=== PATIENT | female | born 1935 | race Caucasian/White ===

== ENCOUNTER → 2016-05-28 | Outpatient (CLI) | payer MEDICARE ==
[2016-05-28 08:46] LABS: Basophils # (A) 0.1 k/uL (0-0.2); Basophils % (A) 1 %; CH 30.7; Eosinophils # (A) 0.2 k/uL (0-0.7); Eosinophils % (A) 3 %; HCT 42.1 % (34.0-46.0); HDW 2.49; HGB 13.9 gm/dL (11.4-16.0); Luc # (Auto) 0.15; Luc % (Auto) 3; Lymphocytes # (A) 1.2 k/uL (1.0-4.8); Lymphocytes % (A) 21 %; MCH 30.9 pg (25.0-35.0); MCV 93.4 fL (80.0-100.0); Mean Platelet Volume 8.2; Monocytes # (A) 0.3 k/uL (0-1.0); Monocytes % (A) 6 %; Neutrophils # (A) 3.8 k/uL (1.3-7.7); Neutrophils % (A) 67 %; RBC 4.51 m/uL (3.80-5.40); RDW 13.7 % (11.5-15.5); WBC 5.7 k/uL (3.8-10.6); WBC (Perox) 5.15
[2016-05-28 09:09] LABS: ALT 24 U/L (9-52); AST 18 U/L (14-36); Anion Gap 11 mmol/L; Blood Urea Nitrogen 17 mg/dL (7-17); Calcium 9.2 mg/dL (8.4-10.2); Carbon Dioxide 27 mmol/L (22-30); Chloride 105 mmol/L (98-107); Cholesterol 180 mg/dL (<200); Glucose 92 mg/dL (74-99); HDL Cholesterol 57 mg/dL (40-60); Non-African American GFR(MDRD) >60 (>60 ml/min/1.73 sqM); Potassium 4.1 mmol/L (3.5-5.1); Sodium 143 mmol/L (137-145); Triglycerides 145 mg/dL (<150)
== END | disposition home or self-care (01) ==
LOC: LABWHC1 08:10
PROVIDERS: ATTEND Internal Medicine
DX: E78.2 Mixed hyperlipidemia (principal); R53.83 Other fatigue; E87.8 Other disorders of electrolyte and fluid balance, not elsewhere classified
CPT/HCPCS: 36415; 80048; 80061; 84443; 84450; 84460; 85025

== ENCOUNTER → 2016-12-16 | Outpatient (CLI) | payer MEDICARE ==
[2016-12-16 14:08] LABS: Blood Urea Nitrogen 17 mg/dL (7-17); Non-African American GFR(MDRD) >60 (>60 ml/min/1.73 sqM)
--- NOTE | 2016-12-16 14:56 | CT ---
EXAMINATION TYPE: CT abdomen pelvis w con DATE OF EXAM: 12/16/2016 HISTORY: LLQ pain, change in bowel habits CT DLP: 723.3mGycm Automated Exposure Control for Dose Reduction was Utilized. CONTRAST: CT scan of the abdomen and pelvis is performed with IV Contrast, patient injected with 100 mL of Omni paque 300. COMPARISON: CT abdomen pelvis October 24, 2006 FINDINGS: LUNG BASES: There is bibasilar atelectatic change and/or scarring. Cardiomegaly is present. Subcentim eter Calcified left infrahilar are noted. LIVER/GB: A few calcifications scattered throughout the liver are redemonstrated. Cholecystectomy cli ps are redemonstrated. PANCREAS: No significant abnormality is seen. SPLEEN: A few calcifications scattered throughout the spleen are redemonstrated. The liver, left infr ahilar, and splenic findings are consistent with product of old granulomatous disease. ADRENALS: No significant abnormality is seen. KIDNEYS: There is symmetric cortical medullary uptake and excretion from both kidneys. There is promi nence of bilateral renal pelvises without significant calyceal dilatation. There are few subcentimete r lesions scattered throughout both kidneys too small to further characterize but presumed benign. BOWEL: The oral contrast does not reach colonic level. There is no suspicious small or large bowel di latation. There is 1.4 cm diverticulum along the second portion of duodenum. Sigmoid colonic divertic ulosis is present. No convincing evidence for acute diverticulitis. Normal-appearing appendix is seen from cecum. UTERUS/ADNEXA: Uterus is surgically absent or markedly atrophic in appearance. LYMPH NODES: No greater than 1cm abdominal or pelvic lymph nodes are appreciated. OSSEOUS STRUCTURES: Osseous structures are demineralized. There is moderate joint space loss and spur ring in both hip joints. There is hemangioma in the left L1 and T12 vertebra. There is marked disc sp bertha narrowing lumbosacral junction. There is facet arthropathy lower lumbar levels. OTHER: There is mild to moderate calcified atherosclerotic change of aorta extending to pelvic branch vessels. There is new [place] hernia left lower quadrant on axial image 59. There is prominence of small mes enteric vessel some mild fat stranding at this level. IMPRESSION: There is new [place] lateral left (Martin type) ventral wall hernia at level of upper to mid pelvis, mild fat stranding at this level raises concern for infection or ischemic change of th e fat and small mesenteric vessel protruding at this level and may be accounting for patient's sympto ms.
== END | disposition home or self-care (01) ==
LOC: RADCTMAIN 13:26
PROVIDERS: ATTEND Internal Medicine
DX: K43.9 Ventral hernia without obstruction or gangrene (principal)
CPT/HCPCS: 82565; 84520; 74177; 36415; Q9967

== ENCOUNTER → 2017-08-03 | Outpatient (CLI) | payer MEDICARE ==
--- NOTE | 2017-08-04 15:06 | XR ---
EXAMINATION TYPE: XR lumbosacral spine min 4V DATE OF EXAM: 08/03/2017 CLINICAL HISTORY: Back pain TECHNIQUE: Frontal, lateral, and oblique images of the lumbar spine are obtained. COMPARISON: None FINDINGS: There are 5 lumbar type vertebral bodies identified. The lumbar spine shows satisfactory alignment. There is a questionable compression deformity of the L3 vertebral body with minimal verteb ral body height loss (estimated less than 10%). This is suboptimally visualized due to osseous demine ralization. Moderate multilevel degenerative changes of the lumbar spine are noted. Remaining vertebral body heig hts are within normal limits. There is at least moderate neural foraminal narrowing at L2-L3 on the l eft and L4-L5 with at least mild neural foraminal narrowing at L3-L4 on the left. On the right neurof oraminal narrowing appears to be at least mild L2-L3. The overlying soft tissue appears unremarkable . Post cystectomy clips are incidentally noted. Multiple right-sided probable renal calculi are seen measuring up to 8 mm (approximately 9 number). IMPRESSION: 1. Subtle questionable compression deformity of the L3 vertebral body without retropulsion with minim al vertebral body height loss (estimated less than 10%) this is suboptimally visualized due to osseou s demineralization. Correlate with focal point tenderness. MR could be performed to evaluate for bone marrow edema. 2. Multilevel moderate degenerative disc disease resulting in neural foraminal narrowing as described above. 3. Right-sided nephrolithiasis measuring up to 8 mm (approximately 9 in number).
== END ==
LOC: RADXRMAIN 16:34
PROVIDERS: ATTEND Internal Medicine
DX: M99.73 Connective tissue and disc stenosis of intervertebral foramina of lumbar region (principal); M51.36 Other intervertebral disc degeneration, lumbar region; M85.80 Other specified disorders of bone density and structure, unspecified site
CPT/HCPCS: 72110

== ENCOUNTER → 2017-08-07 | Outpatient (CLI) | payer MEDICARE ==
--- NOTE | 2017-08-07 16:09 | NM ---
EXAMINATION TYPE: NM bone scan whole body DATE OF EXAM: 08/07/2017 COMPARISON: 10/24/2015 HISTORY: Low back pain Delayed whole-body scanning was performed following the injection of 21.6 mCi Tc 99m MDP. Images acq uired 3 hours post injection. FINDINGS: Focal radiotracer uptake is seen within the L2 vertebral body. Retrospectively on the examination of 07/24/2017 this does correspond to the radiographic findings, however counting was off on the lateral i mage. There is diffuse osseous demineralization noted. Bilateral knee arthroplasties are seen. Poolin g within the left renal pelvis is identified. Symmetric uptake within the sternoclavicular joints, sh oulders, wrists, and sacroiliac joints are likely on a degenerative basis. IMPRESSION: Focal radiotracer uptake within the L2 vertebral body indicating acute compression fracture within co rrelated with the radiographs of 08/03/2017.
== END | disposition home or self-care (01) ==
LOC: RADNMMAIN 11:35
PROVIDERS: ATTEND Physical Medicine & Rehabilitation
DX: S32.029A Unspecified fracture of second lumbar vertebra, initial encounter for closed fracture (principal)
CPT/HCPCS: 78306; A9503

== ENCOUNTER → 2018-09-21 | Outpatient (CLI) | payer MEDICARE ==
--- NOTE | 2018-09-21 14:56 | XR ---
EXAMINATION TYPE: XR chest 2V DATE OF EXAM: 09/21/2018 COMPARISON: 12/17/2015 TECHNIQUE: PA and lateral views submitted. HISTORY: Shortness of breath FINDINGS: Subsegmental consolidation bilaterally with small left effusion. Surgical clips overlying soft tissue s of the chest wall bilaterally. Hypertrophic and degenerative change of the spine. Hyperinflation king ggests COPD. Diffuse osteopenia. Previous trauma the right clavicle noted. IMPRESSION: 1. Basilar atelectasis favored over pneumonia. Tiny pleural thickening or pleural effusion.
== END | disposition home or self-care (01) ==
LOC: RADXRMAIN 14:23
PROVIDERS: ATTEND Internal Medicine
DX: R07.81 Pleurodynia (principal)
CPT/HCPCS: 71046

== ENCOUNTER 2020-03-20 17:04 | Inpatient (IN) | payer MEDICARE ==
[2020-03-20] MEDS ORDERED: SODIUM CHLORIDE 0.9% 500 ML 500 ML IV STA (17:54)
[2020-03-20 18:11] LABS: Basophils # (A) 0.1 k/uL (0-0.2); Basophils % (A) 1 %; Eosinophils # (A) 0.2 k/uL (0-0.7); Eosinophils % (A) 4 %; HGB 13.2 gm/dL (11.4-16.0); Lymphocytes % (A) 20 %; MCH 32.6 pg (25.0-35.0); MCHC 33.9 g/dL (31.0-37.0); MCV 96.2 fL (80.0-100.0); Mean Platelet Volume 7.6; Monocytes # (A) 0.4 k/uL (0-1.0); Monocytes % (A) 8 %; Neutrophils # (A) 3.4 k/uL (1.3-7.7); Neutrophils % (A) 64 %; Platelet Count 277 k/uL (150-450); RBC 4.05 m/uL (3.80-5.40); RDW 13.4 % (11.5-15.5); WBC 5.3 k/uL (3.8-10.6)
[2020-03-20 18:20] LABS: ALT 9 U/L (4-34); AST 21 U/L (14-36); African American GFR (CKD) >90 (>60 ml/min/1.73 sqM); Albumin 3.7 g/dL (3.5-5.0); Alkaline Phosphatase 80 U/L (38-126); Anion Gap 5 mmol/L; Blood Urea Nitrogen 12 mg/dL (7-17); Calcium 9.4 mg/dL (8.4-10.2); Carbon Dioxide 26 mmol/L (22-30); Chloride 105 mmol/L (98-107); Glucose 93 mg/dL (74-99); Lipase 57 U/L (23-300); Non-African American GFR(CKD) 84 (>60 ml/min/1.73 sqM); Potassium 4.2 mmol/L (3.5-5.1); Sodium 136 mmol/L (137-145); Total Bilirubin 0.6 mg/dL (0.2-1.3); Total Protein 6.9 g/dL (6.3-8.2)
--- NOTE | 2020-03-20 18:20 | ED ---
Abdominal Pain HPI - General Chief Complaint: Abdominal Pain Stated Complaint: back & abd pain Time Seen by Provider: 03/20/20 17:05 Source: patient Mode of arrival: wheelchair Limitations: physical limitation - History of Present Illness Initial Comments: 84 year old female with past history of breast cancer in remission, hypertension who presents to the emergency department with reported abdominal pain. Patient states she's had lower abdominal pain and back pain for the past 5 days. Also reports that she has not had a bowel movement. Patient normally goes daily. States that she has been taking stool softeners and laxatives without improvement. Patient reports abdominal distention. Has a history of previous bowel surgery. Denies history of bowel obstruction. Admits to nausea without vomiting. No fevers or chills. No chest pain or shortness of breath. No other alleviating, precipitating or modifying factors - Related Data Home Medications Medication Instructions Recorded Confirmed atenoloL [Tenormin] 25 mg PO QAM 01/30/14 03/20/20 Acetaminophen [Tylenol] 1,000 mg PO Q4-6H PRN 03/20/20 03/20/20 Triamcinolone 0.5% Cream [Kenalog 1 applic TOPICAL BID 03/20/20 03/20/20 0.5% Cream] Previous Rx's Medication Instructions Recorded polyethylene glycoL 3350 [Miralax] 17 gm PO DAILY 5 Days #30 powd.pack 03/22/20 Allergies Allergy/AdvReac Type Severity Reaction Status Date / Time No Known Allergies Allergy Verified 03/20/20 18:35 Review of Systems ROS Statement: Those systems with pertinent positive or pertinent negative responses have been documented in the HPI. ROS Other: All systems not noted in ROS Statement are negative. Past Medical History Past Medical History: Cancer, GI Bleed, Hypertension, Osteoarthritis (OA) Additional Past Medical History / Comment(s): HX RT BREAST CA-WITH RADIATION- 2006, BENIGN TUMOR COLON. HX BLEEDING ULCER-2007 History of Any Multi-Drug Resistant Organisms: None Reported Past Surgical History: Bladder Surgery, Bowel Resection, Breast Surgery, Cholecystectomy, Hernia Repair, Hysterectomy, Joint Replacement Additional Past Surgical History / Comment(s): SIGMOID RESECTION-1985,RT BREAST LUMPECTOMY-2006. BILAT TKA,CYSTOCELE, COLONOSCOPY,CATARACTS REMOVED BILAT, 1 0-11-16 TOTAL RT KNEE REPLACMENT Past Anesthesia/Blood Transfusion Reactions: No Reported Reaction Past Psychological History: No Psychological Hx Reported Smoking Status: Never smoker Past Alcohol Use History: None Reported Past Drug Use History: None Reported - Past Family History Mother Family Medical History: Cancer, Deep Vein Thrombosis (DVT) Son(s) Family Medical History: Cancer General Exam Limitations: physical limitation General appearance: alert, in no apparent distress Head exam: Present: atraumatic, normocephalic, normal inspection Eye exam: Present: normal appearance, PERRL, EOMI. Absent: scleral icterus, conjunctival injection, periorbital swelling ENT exam: Present: normal exam, mucous membranes moist Neck exam: Present: normal inspection. Absent: tenderness, meningismus, lymphadenopathy Respiratory exam: Present: normal lung sounds bilaterally. Absent: respiratory distress, wheezes, rales, rhonchi, stridor Cardiovascular Exam: Present: regular rate, normal rhythm, normal heart sounds. Absent: systolic murmur, diastolic murmur, rubs, gallop, clicks GI/Abdominal exam: Present: soft, tenderness (generalized), normal bowel sounds. Absent: distended, guarding, rebound, rigid Extremities exam: Present: normal inspection, full ROM, normal capillary refill. Absent: tenderness, pedal edema, joint swelling, calf tenderness Back exam: Present: normal inspection Neurological exam: Present: alert, oriented X3, CN II-XII intact Psychiatric exam: Present: normal affect, normal mood Skin exam: Present: warm, dry, intact, normal color. Absent: rash Course Vital Signs 03/20/20 03/20/20 17:06 19:44 Temperature 97.7 F Pulse Rate 70 62 Respiratory 18 18 Rate Blood Pressure 137/85 140/62 O2 Sat by Pulse 100 93 L Oximetry Medical Decision Making - Medical Decision Making On arrival patient is placed in room 4. A thorough history and physical exam was performed. Peripheral IV is established and laboratory studies were conducted. Laboratory studies are reviewed. Patient is sent for a CT of her abdomen and pelvis was demonstrates mild fluid-filled small bowel loops within the pelvis suggestive ileus. Results are discussed with the patient. Did recommend hospitalization for bowel rest, pain control and GI consult. Patient did agree to this. Discussed case with Dr. Delgadillo who agreed to admit the patient. Patient remained in stable condition awaiting a bed. - Lab Data Result diagrams: 03/21/20 05:23 03/21/20 05:23 Lab Results 03/20/20 03/20/20 03/20/20 Range/Units 17:58 17:58 17:58 WBC 5.3 (3.8-10.6) k/uL RBC 4.05 (3.80-5.40) m/uL Hgb 13.2 (11.4-16.0) gm/dL Hct 39.0 (34.0-46.0) % MCV 96.2 (80.0-100.0) fL MCH 32.6 (25.0-35.0) pg MCHC 33.9 (31.0-37.0) g/dL RDW 13.4 (11.5-15.5) % Plt Count 277 (150-450) k/uL MPV 7.6 Neutrophils % 64 % Lymphocytes % 20 % Monocytes % 8 % Eosinophils % 4 % Basophils % 1 % Neutrophils # 3.4 (1.3-7.7) k/uL Lymphocytes # 1.0 (1.0-4.8) k/uL Monocytes # 0.4 (0-1.0) k/uL Eosinophils # 0.2 (0-0.7) k/uL Basophils # 0.1 (0-0.2) k/uL PT 10.8 (9.0-12.0) sec INR 1.1 (<1.2) APTT 25.6 (22.0-30.0) sec Sodium 136 L (137-145) mmol/L Potassium 4.2 (3.5-5.1) mmol/L Chloride 105 (98-107) mmol/L Carbon Dioxide 26 (22-30) mmol/L Anion Gap 5 mmol/L BUN 12 (7-17) mg/dL Creatinine 0.57 (0.52-1.04) mg/dL Est GFR (CKD-EPI)AfAm >90 (>60 ml/min/1.73 sqM) Est GFR (CKD-EPI)NonAf 84 (>60 ml/min/1.73 sqM) Glucose 93 (74-99) mg/dL Plasma Lactic Acid Ken (0.7-2.0) mmol/L Calcium 9.4 (8.4-10.2) mg/dL Total Bilirubin 0.6 (0.2-1.3) mg/dL AST 21 (14-36) U/L ALT 9 (4-34) U/L Alkaline Phosphatase 80 (38-126) U/L Total Protein 6.9 (6.3-8.2) g/dL Albumin 3.7 (3.5-5.0) g/dL Lipase 57 (23-300) U/L Urine Color Urine Appearance (Clear) Urine pH (5.0-8.0) Ur Specific [place] (1.001-1.035) Urine Protein (Negative) Urine Glucose (UA) (Negative) Urine Ketones (Negative) Urine Blood (Negative) Urine Nitrite (Negative) Urine Bilirubin (Negative) Urine Urobilinogen (<2.0) mg/dL Ur Leukocyte Esterase (Negative) Urine RBC (0-5) /hpf Urine WBC (0-5) /hpf Ur Squamous Epith Cells (0-4) /hpf 03/20/20 03/20/20 Range/Units 17:58 19:34 WBC (3.8-10.6) k/uL RBC (3.80-5.40) m/uL Hgb (11.4-16.0) gm/dL Hct (34.0-46.0) % MCV (80.0-100.0) fL MCH (25.0-35.0) pg MCHC (31.0-37.0) g/dL RDW (11.5-15.5) % Plt Count (150-450) k/uL MPV Neutrophils % % Lymphocytes % % Monocytes % % Eosinophils % % Basophils % % Neutrophils # (1.3-7.7) k/uL Lymphocytes # (1.0-4.8) k/uL Monocytes # (0-1.0) k/uL Eosinophils # (0-0.7) k/uL Basophils # (0-0.2) k/uL PT (9.0-12.0) sec INR (<1.2) APTT (22.0-30.0) sec Sodium (137-145) mmol/L Potassium (3.5-5.1) mmol/L Chloride (98-107) mmol/L Carbon Dioxide (22-30) mmol/L Anion Gap mmol/L BUN (7-17) mg/dL Creatinine (0.52-1.04) mg/dL Est GFR (CKD-EPI)AfAm (>60 ml/min/1.73 sqM) Est GFR (CKD-EPI)NonAf (>60 ml/min/1.73 sqM) Glucose (74-99) mg/dL Plasma Lactic Acid Ken 0.8 (0.7-2.0) mmol/L Calcium (8.4-10.2) mg/dL Total Bilirubin (0.2-1.3) mg/dL AST (14-36) U/L ALT (4-34) U/L Alkaline Phosphatase (38-126) U/L Total Protein (6.3-8.2) g/dL Albumin (3.5-5.0) g/dL Lipase (23-300) U/L Urine Color Yellow Urine Appearance Clear (Clear) Urine pH 5.5 (5.0-8.0) Ur Specific [place] 1.050 H (1.001-1.035) Urine Protein Negative (Negative) Urine Glucose (UA) Negative (Negative) Urine Ketones Trace H (Negative) Urine Blood Trace H (Negative) Urine Nitrite Negative (Negative) Urine Bilirubin Negative (Negative) Urine Urobilinogen <2.0 (<2.0) mg/dL Ur Leukocyte Esterase Trace H (Negative) Urine RBC 2 (0-5) /hpf Urine WBC 6 H (0-5) /hpf Ur Squamous Epith Cells 2 (0-4) /hpf - EKG Data EKG Comments: EKG done which is normal sinus rhythm with a ventricular rate of 62. [place] interval 174. QRS 86. QTC of 424. No acute ST segment elevation or depressions concerning for ischemic changes Disposition Clinical Impression: Ileus, Abdominal pain Disposition: ADMITTED IP TO THIS HOSP Condition: Stable Is patient prescribed a controlled substance at d/c from ED?: No Decision to Admit Reason: Admit from EC Decision Date: 03/20/20 Decision Time: 19:51
[2020-03-20 18:22] LABS: INR 1.1 (<1.2); Partial Thromboplastin Time 25.6 sec (22.0-30.0); Prothrombin Time 10.8 sec (9.0-12.0)
--- NOTE | 2020-03-20 19:05 | CT ---
EXAMINATION TYPE: CT abdomen pelvis w con DATE OF EXAM: 03/20/2020 COMPARISON: 12/16/2016 INDICATION: Abdominal and back pain. DLP: 816.8 mGycm, Automated exposure control for dose reduction was used. CONTRAST: 100ml mL of Isovue 300. Study performed without Oral Contrast TECHNIQUE: Axial images were obtained from above the diaphragm to the pubic rami in the axial plane a t 5 mm thick sections. Reconstructed images are reviewed on the computer in the coronal plane. FINDINGS: Limited CT sections are obtained the lung bases. The lung bases are clear. CT ABDOMEN: Liver: Normal Spleen: Normal Pancreas: Normal Adrenal glands: The adrenal glands are normal. Gallbladder: Surgically absent Kidneys: No masses are evident. No hydronephrosis is present. No cysts are present. Delayed images were obtained through the kidneys, which remain unremarkable. Aorta: Vascular calcification is within the aorta. Inferior vena cava: Normal. CT PELVIS: Small bowel loops within the pelvis are fluid-filled. Left hemipelvis small bowel loops are slightly prominent. Correlate for ileus. Study is performed without oral contrast limiting bowel evaluation. Appendix: Normal as visualized. Urinary bladder: Decompressed with limited evaluation Genitourinary structures: Uterus and ovaries are not identified. Osseous structures: No suspicious lytic or sclerotic lesions. IMPRESSIONS: 1. Mild fluid-filled small bowel loops within the pelvis suggestive for ileus within the pelvis.
[2020-03-20 19:49] LABS: Appearance,Urine Clear (Clear); Bilirubin,Urine Negative (Negative); Blood,Urine Trace (Negative); Color,Urine Yellow; Glucose,Urine (UA) Negative (Negative); Ketones,Urine Trace (Negative); Leukocyte Esterase,Urine Trace (Negative); Nitrite,Urine Negative (Negative); PH, Urine 5.5 (5.0-8.0); Protein,Urine Negative (Negative); RBC,Urine 2 /hpf (0-5); Squamous Epithelial Cell,Urine 2 /hpf (0-4); Urobilinogen,Urine <2.0 mg/dL (<2.0); WBC,Urine 6 /hpf (0-5)
[2020-03-20] MEDS ORDERED: ONDANSETRON 4 MG/2 ML VIAL IVP PRN (19:57)
[2020-03-20] MEDS ORDERED: NALOXONE 0.4 MG/ML 1 ML VIAL IV PRN (19:57)
[2020-03-20] MEDS: SODIUM CHLORIDE 0.9% 1,000 ML IV SCH (20:29)
[2020-03-20] MEDS: MORPHINE SULFATE 4 MG/ML SYRINGE IV PRN (22:40)
[2020-03-21] MEDS ORDERED: bisacodyL 10 MG SUPP RECTAL STA
--- NOTE | 2020-03-21 00:12 | P.HPIM ---
History of Present Illness H&P Date: 03/20/20 Chief Complaint: constipation 84 year old female with hypertension and breast cancer in remission patient comes in with constipation of 7 days duration , she normally goes daily , she has tried laxatives and stool softners with no much benefit, she started experiencing abd distention and discomfort, for which she decided to come in for evaluation. she reports some nausea but no vomiting, denies any fever, chills, chest pain or trouble breathing , she denies any GI bleeding or urinary changes. she did have some bowel surgery in the past for benign tumor removal but never had history of bowel obstruction CT abd pelvis showed ileus blood work unremarkable Review of Systems Pertinent positives as noted in HPI. All other systems were reviewed and are negative Past Medical History Past Medical History: Cancer, GI Bleed, Hypertension, Osteoarthritis (OA) Additional Past Medical History / Comment(s): HX RT BREAST CA-WITH RADIATION- 2006, BENIGN TUMOR COLON. HX BLEEDING ULCER-2007 History of Any Multi-Drug Resistant Organisms: None Reported Past Surgical History: Bladder Surgery, Bowel Resection, Breast Surgery, Cholecystectomy, Hernia Repair, Hysterectomy, Joint Replacement Additional Past Surgical History / Comment(s): SIGMOID RESECTION-1985,RT BREAST LUMPECTOMY-2006. BILAT TKA,CYSTOCELE, COLONOSCOPY,CATARACTS REMOVED BILAT, 01-01-16 TOTAL RT KNEE REPLACMENT Past Anesthesia/Blood Transfusion Reactions: No Reported Reaction Past Psychological History: No Psychological Hx Reported Smoking Status: Never smoker Past Alcohol Use History: None Reported Past Drug Use History: None Reported - Past Family History Mother Family Medical History: Cancer, Deep Vein Thrombosis (DVT) Son(s) Family Medical History: Cancer Medications and Allergies Home Medications Medication Instructions Recorded Confirmed Type atenoloL [Tenormin] 25 mg PO QAM 01/30/14 03/20/20 History Acetaminophen [Tylenol] 1,000 mg PO Q4-6H PRN 03/20/20 03/20/20 History Cyclobenzaprine HCl 5 mg PO HS 03/20/20 03/20/20 History Triamcinolone 0.5% Cream [Kenalog 1 applic TOPICAL BID 03/20/20 03/20/20 History 0.5% Cream] Allergies Allergy/AdvReac Type Severity Reaction Status Date / Time No Known Allergies Allergy Verified 03/20/20 18:35 Physical Exam Vitals: Vital Signs Temp Pulse Resp BP Pulse Ox 03/20/20 19:44 62 18 140/62 93 L 03/20/20 17:06 97.7 F 70 18 137/85 100 Intake and Output 03/20/20 03/20/20 03/21/20 14:59 22:59 06:59 Other: Weight 72.121 kg Constitutional: No acute distress, conversant, pleasant Eyes: Anicteric sclerae, moist conjunctiva, Pupils equal round reactive to light ENMT: NC/AT Oropharynx clear, no erythema, or exudates Neck: Supple, FROM, no masses, or JVD No carotid bruits No thyromegaly Lungs: Clear to auscultation Clear to percussion Normal respiratory effort, no accessory muscle use Cardiovascular: Heart regular in rate and rhythm, No murmurs, gallops, or rubs No peripheral edema Abdominal: Soft, mild distention and tympanic to percussion Nontender, no guarding, rebound or rigidity Abdomen moving with respiration Normoactive bowel sounds No hepatomegaly, No splenomegaly No palpable mass No abdominal wall hernia noted Skin: Normal temperature, tone, texture, turgor No induration No subcutaneous nodules No rash, lesions No ulcers Extremities: No digital cyanosis No clubbing Pedal pulses intact and symmetrical Radial pulses intact and symmetrical No calf tenderness Psychiatric: Alert and oriented to person, place and time Appropriate affect fair judgement Neuro Muscles Strength 5/5 in all 4 extremities Sensation to light touch grossly present throughout Cranial nerves II-XII grossly intact No focal sensory deficits Lymphatics: no palpable cervical or supraclavicular , or inguinal lymph nodes Results CBC & Chem 7: 03/20/20 17:58 03/20/20 17:58 Labs: Abnormal Lab Results - Last 24 Hours (Table) 03/20/20 03/20/20 Range/Units 17:58 19:34 Sodium 136 L (137-145) mmol/L Ur Specific [place] 1.050 H (1.001-1.035) Urine Ketones Trace H (Negative) Urine Blood Trace H (Negative) Ur Leukocyte Esterase Trace H (Negative) Urine WBC 6 H (0-5) /hpf Thrombosis Risk Factor Assmnt - Choose All That Apply Each Risk Factor Represents 3 Points: Age 75 years or older Thrombosis Risk Factor Assessment Total Risk Factor Score: 3 Thrombosis Risk Factor Assessment Level: Moderate Risk Assessment and Plan Assessment: constipation with ileus increase fiber intake gradually to goal of 25 gm daily IVF hydration with normal saline trial of one time rectal bisacodyl if no bowel movement by tomorrow, then patient agrees with trial of warm water enema hypertension , resume atenolol full code DVT prophylaxis: mechanical Discussed with: Patient, ER Anticipated length of stay < than [address]: home A total of 65 minutes was spent on the care of this complex patient more than 5 0% of the time was spent in counseling and care coordination.
[2020-03-21] MEDS: PSYLLIUM HUSK 100% 6 GM PACKET PO SCH ×2 (00:28→09:31)
[2020-03-21] MEDS: TRIAMCINOLONE ACET 0.5% CREAM 15 GM TUBE TOPICAL SCH ×3 (00:28→20:50)
[2020-03-21] MEDS: SODIUM CHLORIDE 0.9% 1,000 ML IV SCH ×2 (05:27→15:48)
[2020-03-21] MEDS: MORPHINE SULFATE 4 MG/ML SYRINGE IV PRN (05:27)
[2020-03-21 05:43] LABS: Basophils % (A) 1 %; Eosinophils # (A) 0.1 k/uL (0-0.7); Eosinophils % (A) 1 %; HGB 11.9 gm/dL (11.4-16.0); Lymphocytes # (A) 0.6 k/uL (1.0-4.8); Lymphocytes % (A) 9 %; MCH 31.8 pg (25.0-35.0); MCHC 32.1 g/dL (31.0-37.0); Mean Platelet Volume 7.3; Monocytes # (A) 0.4 k/uL (0-1.0); Monocytes % (A) 6 %; Neutrophils # (A) 5.7 k/uL (1.3-7.7); Neutrophils % (A) 82 %; Platelet Count 231 k/uL (150-450); RBC 3.73 m/uL (3.80-5.40); RDW 13.4 % (11.5-15.5); WBC 6.9 k/uL (3.8-10.6)
[2020-03-21] MEDS: atenoloL 25 MG TAB PO SCH (08:08)
[2020-03-21 09:53] LABS: African American GFR (CKD) 95.7 (60.0-200.0); Anion Gap 11.7 mmol/L (4.00-12.00); Calcium 8.5 mg/dL (8.7-10.3); Carbon Dioxide 22.3 mmol/L (21.6-31.8); Non-African American GFR(CKD) 82.5 (60.0-200.0)
--- NOTE | 2020-03-21 17:27 | P.PN ---
Subjective Progress Note Date: 03/21/20 Principal diagnosis: Constipation Patient reported having small bowel movement this morning. She states that she is passing gas. No significant abdominal pain. No nausea or vomiting. Objective - Vital Signs Vital signs: Vital Signs Temp 98 F 03/21/20 14:00 Pulse 59 L 03/21/20 14:00 Resp 16 03/21/20 14:00 BP 94/62 03/21/20 14:00 Pulse Ox 95 03/21/20 14:00 Intake & Output 03/20/20 03/21/20 03/21/20 18:59 06:59 18:59 Intake Total 300 Balance 300 Weight 72.121 kg 72.121 kg Intake: Intake, IV Titration 300 Amount Sodium Chloride 0.9% 1, 300 000 ml @ 100 mls/hr IV . Q10H [facility] Rx#:[id number] - Exam Constitutional: No acute distress, conversant, pleasant Eyes:Anicteric sclerae, moist conjunctiva, no lid-lag, PERRLA, ENMT: Oropharynx clear, no erythema, exudates Neck: Supple, FROM, no masses, or JVD, No carotid bruits, No thyromegaly Lungs: Clear to auscultation, Clear to percussion, Normal respiratory effort, no accessory muscle use Cardiovascular: Heart regular in rate and rhythm, No murmurs, gallops, or rubs, No peripheral edema Abdominal: Soft, Nontender, no guarding, rebound or rigidity, Normoactive bowel sounds, No hepatomegaly, No splenomegaly, No palpable mass Skin: Normal temperature, tone, texture, turgor, no induration, No subcutaneous nodules, No rash, lesions, No ulcers Extremities: No digital cyanosis, No clubbing, Pedal pulses intact and symmetrical, Radial pulses intact and symmetrical, No calf tenderness Psychiatric: Alert and oriented to person, place and time, appropriate affect, intact judgement Neuro: Muscles Strength 5/5 in all 4 extremities, Sensation to light touch grossly present throughout, Cranial nerves II-XII grossly intact, no focal senso ry deficits - Labs CBC & Chem 7: 03/21/20 05:23 03/21/20 05:23 Labs: Abnormal Lab Results - Last 24 Hours (Table) 03/20/20 03/20/20 03/21/20 Range/Units 17:58 19:34 05:23 RBC 3.73 L (3.80-5.40) m/uL Lymphocytes # 0.6 L (1.0-4.8) k/uL Sodium 136 L (137-145) mmol/L Calcium (8.7-10.3) mg/dL Ur Specific [place] 1.050 H (1.001-1.035) Urine Ketones Trace H (Negative) Urine Blood Trace H (Negative) Ur Leukocyte Esterase Trace H (Negative) Urine WBC 6 H (0-5) /hpf 03/21/20 Range/Units 05:23 RBC (3.80-5.40) m/uL Lymphocytes # (1.0-4.8) k/uL Sodium (137-145) mmol/L Calcium 8.5 L (8.7-10.3) mg/dL Ur Specific [place] (1.001-1.035) Urine Ketones (Negative) Urine Blood (Negative) Ur Leukocyte Esterase (Negative) Urine WBC (0-5) /hpf Assessment and Plan Plan: constipation with ileus Continue Metamucil Add MiraLAX IVF hydration with normal saline Gen. surgery consulted Chronic Hypertension Resume atenolol full code Anticipated discharge: 1-2 days Disposition: Likely home
[2020-03-21] MEDS: polyethylene glycoL 3350 17 GM POWD.PACK PO SCH (17:55)
[2020-03-22 02:30] VITALS: RESP 16
[2020-03-22] MEDS: SODIUM CHLORIDE 0.9% 1,000 ML IV SCH ×2 (02:48→13:09)
[2020-03-22 09:12] VITALS: BP 152/81; PULSE 72; TEMP 97.7
[2020-03-22] MEDS: PSYLLIUM HUSK 100% 6 GM PACKET PO SCH (09:12)
[2020-03-22] MEDS: polyethylene glycoL 3350 17 GM POWD.PACK PO SCH (09:12)
[2020-03-22] MEDS: atenoloL 25 MG TAB PO SCH (09:12)
[2020-03-22] MEDS ORDERED: ACETAMINOPHEN TAB 500 MG TAB PO STA (09:16)
[2020-03-22] MEDS ORDERED: ACETAMINOPHEN TAB 325 MG TAB PO PRN (09:17)
[2020-03-22] MEDS: TRIAMCINOLONE ACET 0.5% CREAM 15 GM TUBE TOPICAL SCH (09:27)
--- NOTE | 2020-03-22 09:51 | XR ---
EXAMINATION TYPE: XR abdomen 2V DATE OF EXAM: 03/22/2020 COMPARISON: None INDICATION: Ileus, abdominal pain TECHNIQUE: Single view abdomen FINDINGS: Nonspecific bowel gas is present. No suspicious air-fluid levels or differential air-fluid levels are present. No free air is present. Psoas margins are normal. No organomegaly is present. Surgical clips in the right upper quadrant. IMPRESSION: 1. Nonspecific abdomen
--- NOTE | 2020-03-22 12:15 | P.DS ---
Providers Date of admission: 03/20/20 19:57 Expected date of discharge: 03/22/20 Attending physician: Ravindra Delgadillo MD Consults: 03/20/20 19:58 Consult Physician Urgent Consulting Provider: Alvin Sterling Consult Reason/Comments: acute abd pain, ileus Do you want consulting provider notified?: Yes Primary care physician: [facility] Course: 84 year old female with hypertension and breast cancer in remission presented to the ER due to constipation for 7 days duration, she normally goes daily, she has tried laxatives and stool softeners with no much benefit, she started experiencing abd distention and discomfort, for which she decided to come in for evaluation. Had some nausea but no vomiting, denied any fever, chills, chest pain or trouble breathing , she denies any urinary symptoms. she did have some bowel surgery in the past for benign tumor removal but never had history of bowel obstruction. Evaluation in the ER with CT abd pelvis showed ileus. Her labs were unremarkable. She was admitted for further evaluation and management. She was started on IV fluids. MiraLAX was added to her constipation regimen. This was successful and she had a couple of bowel movements yesterday. Today she is feeling better. No significant abdominal pain. No nausea or vomiting. She'll be discharged home in stable condition. Patient Condition at Discharge: Stable Plan - Discharge Summary New Discharge Prescriptions: New polyethylene glycoL 3350 [Miralax] 17 gm PO DAILY 5 Days #30 powd.pack Continue atenoloL [Tenormin] 25 mg PO QAM Triamcinolone 0.5% Cream [Kenalog 0.5% Cream] 1 applic TOPICAL BID Acetaminophen [Tylenol] 1,000 mg PO Q4-6H PRN PRN Reason: Pain Or Fever > 100.5 Discontinued Cyclobenzaprine HCl 5 mg PO HS Discharge Medication List atenoloL [Tenormin] 25 mg PO QAM 01/30/14 [History] Acetaminophen [Tylenol] 1,000 mg PO Q4-6H PRN 03/20/20 [History] Triamcinolone 0.5% Cream [Kenalog 0.5% Cream] 1 applic TOPICAL BID 03/20/20 [History] polyethylene glycoL 3350 [Miralax] 17 gm PO DAILY 5 Days #30 powd.pack 03/22/20 [Rx] Follow up Appointment(s)/Referral(s): Michelle Dill MD [Primary Care Provider] - 1-2 days
--- NOTE | 2020-03-22 13:37 | P.CONS ---
History of Present Illness - Reason for Consult Consult date: 03/21/20 Abdominal pain Requesting physician: Ravindra Delgadillo - Chief Complaint Abdominal pain - History of Present Illness 84-year-old female with a medical history significant for breast cancer currently in remission and hypertension who presented to the hospital for complaints of abdominal pain. The patient reports abdominal pain and distention in the setting of constipation. She reports that she has gone approximately 2 weeks without having a bowel movement prior to presentation to the hospital. She denied any nausea or vomiting with her symptoms. On questioning she reports that previously she has had a prior partial colon resection for a nonmalignant polyps and her last colonoscopy was incomplete with the surgical service in 2016 and significant for diverticulosis. Since presentation to the hospital imaging evidence suggestive of ileus. Currently however she is reporting 2 bowel movements with much improvement in her abdominal pain after the bowel movements. She denies any signs or symptoms of GI bleeding. Review of Systems REVIEW OF SYSTEMS: CONSTITUTIONAL: Denies any fevers, chills, weight change or fatigue. CARDIOVASCULAR: Denies any chest pain, palpitations high or low blood pressures RESPIRATORY: Denies any shortness of breath, hemoptysis or cough. GENITOURINARY: No dysuria or hematuria. MUSCULOSKELETAL: No weakness reported. SKIN: Denies any new rashes or lesions, jaundice or pallor. PSYCHIATRIC: Denies any depression or anxiety. NEUROLOGY: Denies headache, denies any new focal deficits. EARS/NOSE/THROAT: No recent hearing change, congestion, nasal discharge or sore throat. EYES: No pain in eyes, discharge or change in vision. GASTROINTESTINAL: As per HPI. Past Medical History Past Medical History: Cancer, GI Bleed, Hypertension, Osteoarthritis (OA) Additional Past Medical History / Comment(s): HX RT BREAST CA-WITH RADIATION- 2006, BENIGN TUMOR COLON. HX BLEEDING ULCER-2007 History of Any Multi-Drug Resistant Organisms: None Reported Past Surgical History: Bladder Surgery, Bowel Resection, Breast Surgery, Cholecystectomy, Hernia Repair, Hysterectomy, Joint Replacement Additional Past Surgical History / Comment(s): SIGMOID RESECTION-1985,RT BREAST LUMPECTOMY-2006. BILAT TKA,CYSTOCELE, COLONOSCOPY,CATARACTS REMOVED BILAT, 12-31- TOTAL RT KNEE REPLACMENT Past Anesthesia/Blood Transfusion Reactions: No Reported Reaction Past Psychological History: No Psychological Hx Reported Smoking Status: Never smoker Past Alcohol Use History: None Reported Past Drug Use History: None Reported - Past Family History Mother Family Medical History: Cancer, Deep Vein Thrombosis (DVT) Son(s) Family Medical History: Cancer Medications and Allergies Home Medications Medication Instructions Recorded Confirmed Type atenoloL [Tenormin] 25 mg PO QAM 01/30/14 03/20/20 History Acetaminophen [Tylenol] 1,000 mg PO Q4-6H PRN 03/20/20 03/20/20 History Triamcinolone 0.5% Cream [Kenalog 1 applic TOPICAL BID 03/20/20 03/20/20 History 0.5% Cream] polyethylene glycoL 3350 [Miralax] 17 gm PO DAILY 5 Days #30 powd.pack 03/22/20 Rx Allergies Allergy/AdvReac Type Severity Reaction Status Date / Time No Known Allergies Allergy Verified 03/20/20 18:35 Physical Exam Vitals: Vital Signs Temp Pulse Resp BP Pulse Ox 03/21/20 20:00 79 17 03/21/20 19:30 98.4 F 79 17 121/74 97 03/21/20 14:00 98 F 59 L 16 94/62 95 03/21/20 08:00 97.6 F 67 16 121/55 97 03/21/20 03:01 98.0 F 68 18 110/69 95 Intake and Output 03/21/20 03/21/20 03/21/20 06:59 14:59 22:59 Intake Total 300 Balance 300 Intake: Intake, IV Titration 300 Amount Sodium Chloride 0.9% 1, 300 000 ml @ 100 mls/hr IV . Q10H [facility] Rx#:[id number] Other: # Voids 1 # Bowel Movements 1 On physical examination, patient appears comfortable in no apparent distress. HEAD: Normocephalic, atraumatic. EYES: No scleral icterus. No conjunctival injection. MOUTH: No lesions, tongue midline. NECK: Trachea midline, no gross abnormalities. CHEST: Decreased air entry in all lung martinez. HEART: Regular rate and rhythm. ABDOMEN: Soft, thin and non tender. Bowel sounds are positive. No organomegaly. No guarding or rigidity. EXTREMITIES: No pedal edema. SKIN: No rashes, no jaundice. NEUROLOGIC: Alert and oriented x3. No focal deficits. Results CBC & Chem 7: 03/21/20 05:23 03/21/20 05:23 Labs: Abnormal Lab Results - Last 24 Hours (Table) 03/21/20 03/21/20 Range/Units 05:23 05:23 RBC 3.73 L (3.80-5.40) m/uL Lymphocytes # 0.6 L (1.0-4.8) k/uL Calcium 8.5 L (8.7-10.3) mg/dL CT scan - abdomen: report reviewed (Computed tomography scan of the abdomen on presentation suggestive of ileus) Assessment and Plan (1) Abdominal pain Narrative/Plan: 84-year-old female with multiple medical comorbidities presenting for abdominal pain. She reports worsening abdominal pain and distention in the setting of constipation over the 2 weeks prior to presentation. She has had prior intra- abdominal surgeries. Last colonoscopy incomplete in 2015. Patient was subsequent was started on a bowel regimen is had 2 bowel movements today with improved symptoms. Current Visit: Yes Status: Acute Code(s): R10.9 - UNSPECIFIED ABDOMINAL PAIN SNOMED Code(s): 90611429 (2) Constipation Current Visit: Yes Status: Acute Code(s): K59.00 - CONSTIPATION, UNSPECIFIED SNOMED Code(s): 41039387 (3) Ileus Current Visit: Yes Status: Acute Code(s): K56.7 - ILEUS, UNSPECIFIED SNOMED Code(s): 749652784 Plan: Supportive care Okay for diet as tolerated Continue MiraLAX bowel regimen X-ray of the abdomen will be ordered for tomorrow Okay for discharge if patient remains symptomatically improved with normal imaging Thank you for allowing us dysphagia in the care of the patient
== END 2020-03-22 14:20 | DRG 390 ==
LOC: EC 17:04 → 5NMEDONC 19:57
PROVIDERS: ADMIT Internal Medicine; ATTEND Internal Medicine
DX: K56.7 Ileus, unspecified (principal); I10 Essential (primary) hypertension; M19.90 Unspecified osteoarthritis, unspecified site; Z96.653 Presence of artificial knee joint, bilateral; Z90.49 Acquired absence of other specified parts of digestive tract; Z98.890 Other specified postprocedural states; Z85.3 Personal history of malignant neoplasm of breast; Z98.42 Cataract extraction status, left eye; Z98.41 Cataract extraction status, right eye; Z90.710 Acquired absence of both cervix and uterus; Z82.49 Family history of ischemic heart disease and other diseases of the circulatory system; Z80.9 Family history of malignant neoplasm, unspecified
CPT/HCPCS: 36415; 74019; 74177; 80048; 80053; 81001; 83605; 83690; 85025; 85610; 85730; 93005; 96360; 96361; 99285

== ENCOUNTER 2021-05-05 19:19 | Emergency (ER) | payer MEDICARE ==
[2021-05-05 19:27] VITALS: BP 119/66; PULSE 65; RESP 20; TEMP 97.9
[2021-05-05] MEDS ORDERED: ACETAMINOPHEN TAB 500 MG TAB PO STA (19:42)
--- NOTE | 2021-05-05 20:07 | XR ---
EXAMINATION TYPE: XR elbow complete LT DATE OF EXAM: 05/05/2021 COMPARISON: NONE HISTORY: Pain TECHNIQUE: 3 views FINDINGS: There is no sign of fracture nor dislocation. Joint spaces are normal. There is no sign of elbow joint effusion. IMPRESSION: Negative left elbow exam. No fracture.
--- NOTE | 2021-05-05 20:08 | XR ---
EXAMINATION TYPE: XR wrist complete LT DATE OF EXAM: 05/05/2021 COMPARISON: NONE HISTORY: Fall. Pain TECHNIQUE: 4 views FINDINGS: There is acute slightly impacted transverse fracture distal radial metaphysis. There is mateus e posterior mild displacement. There is no dislocation. Distal ulna appears intact. Carpal bones are intact. There is moderate ARTHRITIS at the first carpometacarpal joint. IMPRESSION: Acute fracture distal radius. Mild impaction.
[2021-05-05] MEDS ORDERED: ACET/COD 300 MG/30 MG STARTER PACK 6 TAB BTL PO STA (20:51)
--- NOTE | 2021-05-05 21:02 | ED ---
General Adult HPI - General Chief complaint: Fall Stated complaint: Fall left wrist pain Time Seen by Provider: 05/05/21 19:29 Source: patient Mode of arrival: wheelchair Limitations: no limitations - History of Present Illness Initial comments: 85 year-old female patient presents to the emergency department for evaluation of left wrist pain after a fall. States she was closing her blinds when she slipped due to her slippers and fell catching herself on her left hand. Reports wrist pain and swelling. Denies numbness or tingling to the hand. Denies hitting her head or losing consciousness. Denies any neck or back pain. States her right hip feels mildly sore but she is able to bear weight and walk without difficulty. She denies taking any medication for her symptoms. Patient denies any chest pain, shortness of breath, dizziness, weakness, abdominal pain, nausea, vomiting, or difficulties with bowel movements or urination. - Related Data Home Medications Medication Instructions Recorded Confirmed atenoloL [Tenormin] 25 mg PO DAILY 01/30/14 05/05/21 Acetaminophen [Tylenol] 1,000 mg PO Q4-6H PRN 03/20/20 05/05/21 polyethylene glycoL 3350 [Miralax] 17 gm PO DAILY PRN 05/05/21 05/05/21 Previous Rx's Medication Instructions Recorded Acetaminophen-Codeine 300-30mg 1 tab PO Q6H PRN #12 tablet 05/05/21 [Tylenol #3] Allergies Allergy/AdvReac Type Severity Reaction Status Date / Time No Known Allergies Allergy Verified 05/05/21 19:50 Review of Systems ROS Statement: Those systems with pertinent positive or pertinent negative responses have been documented in the HPI. ROS Other: All systems not noted in ROS Statement are negative. Past Medical History Past Medical History: Cancer, GI Bleed, Hypertension, Osteoarthritis (OA) Additional Past Medical History / Comment(s): HX RT BREAST CA-WITH RADIATION- 2006, BENIGN TUMOR COLON. HX BLEEDING ULCER-2007 History of Any Multi-Drug Resistant Organisms: None Reported Past Surgical History: Bladder Surgery, Bowel Resection, Breast Surgery, Cholecystectomy, Hernia Repair, Hysterectomy, Joint Replacement Additional Past Surgical History / Comment(s): SIGMOID RESECTION-1985,RT BREAST LUMPECTOMY-2006. BILAT TKA,CYSTOCELE, COLONOSCOPY,CATARACTS REMOVED BILAT, 01-01-16 TOTAL RT KNEE REPLACMENT Past Anesthesia/Blood Transfusion Reactions: No Reported Reaction Past Psychological History: No Psychological Hx Reported Smoking Status: Never smoker Past Alcohol Use History: None Reported Past Drug Use History: None Reported - Past Family History Mother Family Medical History: Cancer, Deep Vein Thrombosis (DVT) Son(s) Family Medical History: Cancer General Exam Limitations: no limitations General appearance: alert, in no apparent distress, other (This is a well- developed, well-nourished elderly female patient in no acute distress.) Eye exam: Present: normal appearance, PERRL, EOMI. Absent: scleral icterus, conjunctival injection, nystagmus, periorbital swelling Neck exam: Present: normal inspection, full ROM, other (Nontender, no step-off, no deformity to firm midline palpation of the posterior cervical spine. Full range of motion without pain or limitation.). Absent: tenderness, meningismus, lymphadenopathy Respiratory exam: Present: normal lung sounds bilaterally. Absent: respiratory distress, wheezes, rales, rhonchi, stridor Cardiovascular Exam: Present: regular rate, normal rhythm, normal heart sounds. Absent: systolic murmur, diastolic murmur, rubs, gallop, clicks GI/Abdominal exam: Present: soft, normal bowel sounds. Absent: distended, tenderness, guarding, rebound, rigid Extremities exam: Present: tenderness (Tenderness over the distal radius and ulna.), normal capillary refill, other (There is soft tissue swelling noted to the left wrist. Skin is otherwise pink, warm, dry. Cap refill less than 3 seconds. Radial pulses 2+.). Absent: full ROM (Diminished range of motion to the left wrist due to pain with movement), pedal edema, joint swelling, calf tenderness Back exam: Present: normal inspection, other (Nontender, no step-off, no deformity to firm midline palpation of the thoracic and lumbar vertebrae. Full range of motion without pain or limitation.). Absent: vertebral tenderness Neurological exam: Present: alert, oriented X3, CN II-XII intact Psychiatric exam: Present: normal affect, normal mood Skin exam: Present: warm, dry, intact, normal color. Absent: rash Course Vital Signs 05/05/21 19:23 Temperature 97.9 F Pulse Rate 65 Respiratory 20 Rate Blood Pressure 119/66 O2 Sat by Pulse 98 Oximetry Procedures - Orthopedic Splinting/Casting Injury #1 Side: left Upper Extremity Injury Location: short arm, wrist Upper Extremity Immobilizer: sling/shoulder immobilizer, sugar tong splint, David wrap, synthetic pre-padded splint Medical Decision Making - Medical Decision Making 85-year-old female patient presents to the emergency department today for evaluation of left wrist pain after fall. Physical examination did reveal soft tissue swelling to the wrist. Neurovascular status is intact. She had some abdominal tenderness as well. X-rays of the wrist and elbow were obtained. X- ray did show impacted distal radius fracture. She was placed in a sugar tong splint and sling. She'll be discharged with orthopedics for further evaluation as soon as possible. They do requesting an [facility], patient has previously received care there. Given Tylenol codeine for pain control. Return parameters were discussed in detail. Patient and family verbalized understanding and agree with this plan. My attending is Dr. Sepulveda. - Radiology Data Radiology results: report reviewed, image reviewed 4 views of the left wrist are obtained. Report was reviewed in its entirety. Impression by Dr. Lynch shows acute fracture distal radius. Mild impaction. Disposition Clinical Impression: Fracture of left distal radius Disposition: HOME SELF-CARE Condition: Good Instructions (If sedation given, give patient instructions): Wrist Fracture in Adults (ED) Additional Instructions: Rest, ice, elevate the wrist. Keep splint in place. Use sling for comfort. Take Tylenol for pain control, Tylenol codeine for the pain is severe. Follow- up with orthopedics as soon as possible, call first thing in the morning for an appointment. Return to the emergency department for any new, worsening, or concerning symptoms. Prescriptions: Acetaminophen-Codeine 300-30mg [Tylenol #3] 1 tab PO Q6H PRN #12 tablet PRN Reason: Pain Is patient prescribed a controlled substance at d/c from ED?: Yes When asked, does pt state using other controlled substances?: No If prescribed controlled substance>3 days was MAPS reviewed?: Prescribed <3 Days If opioid is for acute pain is fill amount 7 days or less?: Yes If Rx opioid, was Start Talking consent form obtained?: Yes Referrals: Michelle Dill MD [Primary Care Provider] - 1-2 days Pedro Kebede MD [STAFF PHYSICIAN] - 1-2 days Time of Disposition: 21:02
== END 2021-05-05 21:15 | disposition home or self-care (01) ==
LOC: EC 19:19
DX: S52.502A Unspecified fracture of the lower end of left radius, initial encounter for closed fracture (principal); I10 Essential (primary) hypertension; M19.90 Unspecified osteoarthritis, unspecified site; W01.0XXA Fall on same level from slipping, tripping and stumbling without subsequent striking against object, initial encounter
CPT/HCPCS: 99283

== ENCOUNTER → 2022-09-03 | Outpatient (CLI) | payer MEDICARE ==
[2022-09-03 09:55] LABS: African American GFR (CKD) >90 (>60 ml/min/1.73 sqM); Blood Urea Nitrogen 14 mg/dL (7-17); Non-African American GFR(CKD) 80 (>60 ml/min/1.73 sqM)
--- NOTE | 2022-09-03 11:04 | CT ---
EXAMINATION TYPE: CT abdomen pelvis wo/w con DATE OF EXAM: 09/03/2022 COMPARISON: 03/20/2020 HISTORY: Abdominal bloating CT DLP: 1020 mGycm CONTRAST: CT scan of the abdomen and pelvis is performed with Oral Contrast and without and with IV Contrast, p atient injected with 100 mL of Isovue 300. FINDINGS: LUNG BASES-: No visible nodule. No infiltrate. LIVER/GB: The gallbladder is surgically absent. No space occupying hepatic lesion. Biliary tree is of normal caliber. PANCREAS: No inflammation. No distinct mass. SPLEEN: No splenic enlargement. No lesion seen. ADRENALS: No nodule. No thickening. KIDNEYS/BLADDER: Extrarenal pelvis left kidney. No hydronephrosis. No nephrolithiasis. No distinct renal mass. Urinary bladder grossly unremarkable. BOWEL: Normal appendix. Normal bowel caliber. No inflammation. GENITAL ORGANS: No gross abnormality. LYMPH NODES: No greater than 1cm abdominal or pelvic lymph nodes are appreciated. AORTA: No significant abnormality. OSSEOUS STRUCTURES: Severe multilevel degenerative disc space narrowing. Mild loss of height involvin g superior endplate of L3 and T12 unchanged from prior study. OTHER: No significant additional abnormality is seen. IMPRESSION: 1. No significant abnormality to account for the patient's symptoms.
== END | disposition home or self-care (01) ==
LOC: RADCTMAIN 08:34
PROVIDERS: ATTEND Family Medicine
DX: R10.9 Unspecified abdominal pain (principal)
CPT/HCPCS: 82565; 84520; 74178; 36415; Q9967

== ENCOUNTER → 2023-09-02 | Day surgery (SDC) | payer MEDICARE ==
--- NOTE | 2023-09-11 11:14 | MM ---
Reason for Exam: Post Procedure Mammogram. Last mammogram was performed 17 year(s) and 2 month(s) ago. Patient History: Menarche at age 11. First Full-Term at age 17. Hysterectomy at age 43. Postmenopausal. Breast cancer, age 70. 08/20/2006, Malignant Excisional Biopsy on the right side. 1976, Benign Excisional Biopsy on the right side. 1976, Benign Excisional Biopsy on the left side. 08/07/2006, Malignant Core Biopsy on the right side. Maternal aunt had breast cancer. Prior Study Comparison: 01/30/1994 Screening Mammogram, Unknown. 01/27/2005 Bilateral Screening Mammogram, [facility]. 07/17/2006 Bilateral Screening Mammogram, [facility]. 07/23/2006 Right Diagnostic Mammogram, [facility]. Tissue Density: Left: The breasts are heterogeneously dense, which may obscure small masses. Pathology Description: Location: 1 o'clock. Marker Left Behind. Needle Type: Celero Cores: 3 Gauge: 12 The procedure of ultrasound guided core biopsy was explained to the patient. Benefits, alternatives, and risks were discussed. An informed consent was then obtained. The patient was placed in supine positioning for imaging and for the procedure. The overlying skin was prepped and draped in usual sterile fashion. Lidocaine buffered with bicarbonate was used as anesthetic into the skin and subcutaneous tissue up to area of concern in the left 1:00 breast. A alex was made with surgical scalpel. Under ultrasound guidance, a 12-gauge vacuum assisted biopsy gun device was used to obtain 3 core samples. Following this, a biopsy clip was left in lesion. The patient tolerated the procedure well without any immediate complication. The patient was kept in the radiology department for short stay after the procedure and then discharged home in stable condition. Postprocedure mammogram: The patient was transferred to mammography for physician ordered post procedure mammogram for clip placement verification. Impression: Successful, uncomplicated ultrasound guided core biopsy of area of concern in the left 1:00 breast, full pathology results to follow. Pathology Results: Result: Malignant, Papillary carcinoma in situ. Pathology and radiology were reviewed. Findings are concordant. LEFT BREAST, 1:00 POSITION, ULTRASOUND GUIDED CORE BIOPSY: Solid papillary carcinoma (see surgical pathology cancer case summary and comment). Overall Assessment: Malignant Assessment: MG diagnostic mammo LT wo CAD. - Left: Known biopsy proven malignancy, BI-RAD 6. Management: Surgical Consultation of the left breast. Electronically signed and approved by: Mat Oh M.D. Radiologis
== END ==
LOC: RADUSWWP 12:40
PROVIDERS: ATTEND Radiology Radiation Oncology
DX: C50.912 Malignant neoplasm of unspecified site of left female breast (principal); R92.8 Other abnormal and inconclusive findings on diagnostic imaging of breast; Z78.0 Asymptomatic menopausal state
CPT/HCPCS: 88305; 88342; 88341; 77065; 19083; A4648

== ENCOUNTER → 2023-10-02 | Outpatient (CLI) | payer MEDICARE ==
[2023-10-02 08:17] VITALS: BP 123/77; PULSE 86; RESP 17; TEMP 97.9
--- NOTE | 2023-10-02 08:51 | P.GSCN ---
History of Present Illness Consult date: 10/02/23 Reason for Consult: Left breast papillary carcinoma Requesting physician: Monica Noyola History of present illness: Chantale is an 87-year-old female seen in consultation for Dr. Noyola regarding a recent biopsy-proven left breast papillary carcinoma. Her history is significant for the fact that she underwent a right sided stage I ER + AZ + HER2 - lumpectomy treated with radiation therapy in 2006. She then underwent a left sided lumpectomy and radiation for a stage I ER + AZ + HER2 - lumpectomy in 2018. Recently underwent a bilateral mammogram on 08-19-2023. This was personally reviewed and evaluated. This revealed a 1.3 cm nodular opacity involving the left axillary region. This corresponded to a palpable abnormality. An ultrasound was performed on 08-19-2023 which revealed a microlobulated hypoechoic nodule measuring 1.3 cm in greatest dimension. This corresponded to the mammographic abnormality. She underwent an ultrasound-guided biopsy of this area on 09-02-2023. The biopsy revealed solid papillary carcinoma. The papillary carcinoma was ER + and AZ +. She has been seen and evaluated by Dr. Noyola in oncology and given the option of the/lumpectomy/lumpectomy plus radiation therapy/or supportive care. Appointment with him it was felt that a lumpectomy alone sound the most reasonable. Chantale has felt a lump in her left breast and that is what led to her mammogram. The lump i snot painful and has not changed in size since it was found. This is remote from the past tumor in the left breast. She tolerated the biopsy without difficulty however she did develop ecchymosis after the postbiopsy mammogram. She has had bilateral lumpectomies and radiation therapy and no other surgeries on her breast. She has not had any recent trauma or infection in the breast. She did not have any genetic testing done. She has had colonoscopies in the past, the last one was in 1984 surgical resection but no cancer last colonoscopy several years ago/poor prep Caffeine: 3 cups/day nicotine: none chocolate: occasional BCP: none hormones: none Family History: mother: colon cancer son: colon cancer Hormonal History: menarche: 12 , age at first : 18, breaet fed: yes menopause: 45 Surgical History: right breast lumpectomies 2007 left breast lumpectomy 2018 Colon resection two hernias, upper abdomen gallbladder bilateral knee replacement right knee done 3 times hysterectomy did not take ovaries bladder surgery at the time off hysterectomy Medical History: fracture of back 3 fractures osteoporosis kyphosis fracture of collar bone Social History: Nicotine: Negative Alcohol: Negative Marijuana: Negative Drugs: Negative Review of Systems - Constitutional Denies fever, Denies weight loss - EENT EENT Comment(s): bilat cataract Eyes: denies blurred vision Ears: bilateral: decreased hearing Ears, nose, mouth and throat: Denies dysphagia - Breasts bilateral: as per HPI - Cardiovascular Denies chest pain, Denies shortness of breath - Respiratory Denies cough, Denies 7 - Gastrointestinal Reports constipation - Genitourinary Genitourinary: Reports urge incontinence, Denies dysuria, Denies hematuria Menstruation: Reports postmenopausal - Musculoskeletal Reports as per HPI - Integumentary Reports unusual bruising, Denies rash - Neurological Denies headaches, Denies syncope - Psychiatric Reports as per HPI - Endocrine Reports as per HPI - Hematologic/Lymphatic Reports easy bruising - Allergic/Immunologic Reports as per HPI Past Medical History Past Medical History: Cancer, GI Bleed, Hypertension, Osteoarthritis (OA) Additional Past Medical History / Comment(s): HX RT BREAST CA-WITH RADIATION- 2006, BENIGN TUMOR COLON. HX BLEEDING ULCER-2007. Hx breast cancer left 2017/ radiation. History of Any Multi-Drug Resistant Organisms: None Reported Past Surgical History: Bladder Surgery, Bowel Resection, Breast Surgery, Cholecystectomy, Hernia Repair, Hysterectomy, Joint Replacement Additional Past Surgical History / Comment(s): SIGMOID RESECTION-1985,RT BREAST LUMPECTOMY-2006. BILAT TKA,CYSTOCELE, COLONOSCOPY,CATARACTS REMOVED BILAT, 12-31- TOTAL RT KNEE REPLACMENT. Left knee repalcement Past Anesthesia/Blood Transfusion Reactions: No Reported Reaction Past Psychological History: No Psychological Hx Reported Smoking Status: Never smoker Past Alcohol Use History: None Reported Past Drug Use History: None Reported - Past Family History Mother Family Medical History: Cancer, Deep Vein Thrombosis (DVT) Son(s) Family Medical History: Cancer Medications and Allergies Home Medications Medication Instructions Recorded Confirmed Type atenoloL [Tenormin] 25 mg PO DAILY 01/30/14 08/26/23 History polyethylene glycoL 3350 [Miralax] 17 gm PO DAILY PRN 05/05/21 08/26/23 History Allergies Allergy/AdvReac Type Severity Reaction Status Date / Time No Known Allergies Allergy Verified 10/02/23 08:13 Surgical - Exam - General no distress - Eyes normal ocular movement - ENT wears hearing aids - Neck trachea midline - Respiratory normal expansion, normal respiratory effort, clear to auscultation - Cardiovascular Rhythm: regular Heart Sounds: normal: S1, S2 - Abdomen Abdomen: soft, non tender, no guarding, no rigid, no rebound - Integumentary normal turgor - Neurologic no disoriented, no combative - Musculoskeletal uses a cane - Psychiatric oriented to time, oriented to person, oriented to place, speech is normal, memory intact Breast Exam: BRA: 36C does not wear a bra Inspection: Bilateral scars in the breast from prior lumpectomies, some tethering of the skin in the upper outer quadrant of the left breast Palpation: Right breast: Multi positional exam no dominant masses or nodules of concern, postsurgical and radiation changes Right axilla: No adenopathy of concern Left breast: Multi positional exam fibrocystic changes, postsurgical changes from prior lumpectomy and radiation therapy, mass upper outer quadrant area with some tethering of the skin which is approximately 3 x 2 cm in size Left axilla: No adenopathy of concern Results Bilateral mammogram from 08-19-2023 personally reviewed Left breast ultrasound personally reviewed Left breast ultrasound-guided core biopsy 09-02-2023 pathology papillary carcinoma ER/AZ positive Assessment and Plan Assessment: Impression: Left breast papillary carcinoma ER/AZ positive size 1.3 cm Prior left breast lumpectomy stage I invasive ductal carcinoma Prior right breast lumpectomy stage I invasive ductal carcinoma, 2006 Osteoporosis Kyphosis HTN Plan: presentation at tumor board probable left breast lumpectomy possible left oncoplastic tissue transfer CC: Dr. Angulo, Dr. Noyola
== END ==
LOC: WWCWWP 07:55
PROVIDERS: ATTEND Surgery
DX: C50.412 Malignant neoplasm of upper-outer quadrant of left female breast (principal); M81.0 Age-related osteoporosis without current pathological fracture; I10 Essential (primary) hypertension; M40.209 Unspecified kyphosis, site unspecified; N63.20 Unspecified lump in the left breast, unspecified quadrant; Z17.0 Estrogen receptor positive status [ER+]; Z92.3 Personal history of irradiation; Z79.899 Other long term (current) drug therapy

== ENCOUNTER → 2023-10-21 | Outpatient (CLI) | payer MEDICARE ==
[2023-10-21 09:15] VITALS: RESP 17
--- NOTE | 2023-10-21 09:24 | P.BCPN ---
Subjective Progress Note Date: 10/21/23 Principal diagnosis: left breast papillary carcinoma History of Present Illness 10-21-23 Reason for Consult: Left breast papillary carcinoma Requesting physician: Monica Noyola History of present illness: Chantale is an 87-year-old female seen in consultation for Dr. Noyola regarding a recent biopsy-proven left breast papillary carcinoma. Her history is significant for the fact that she underwent a right sided stage I ER + AK + HER2 - lumpectomy treated with radiation therapy in 2006. She then underwent a left sided lumpectomy and radiation for a stage I ER + AK + HER2 - lumpectomy in 2018. Recently underwent a bilateral mammogram on 08-19-2023. This was personally reviewed and evaluated. This revealed a 1.3 cm nodular opacity involving the left axillary region. This corresponded to a palpable abnormality. An ultrasound was performed on 08-19-2023 which revealed a microlobulated hypoechoic nodule measuring 1.3 cm in greatest dimension. This corresponded to the ma mmographic abnormality. She underwent an ultrasound-guided biopsy of this area on 09-02-2023. The biopsy revealed solid papillary carcinoma. The papillary carcinoma was ER + and AK + Her2- G2. She has been seen and evaluated by Dr. Noyola in radiation oncology and given the option of the/lumpectomy/lumpectomy plus radiation therapy/or supportive care. Appointment with him it was felt that a lumpectomy alone was the most reasonable. Chantale has felt a lump in her left breast and that is what led to her mammogram. The lump is not painful and has not changed in size since it was found. This is remote from the past tumor in the left breast. She tolerated the biopsy without difficulty however she did develop ecchymosis after the post biopsy mammogram. She has had bilateral lumpectomies and radiation therapy and no other surgeries on her breast. She has not had any recent trauma or infection in the breast. She did not have any genetic testing done. She has had colonoscopies in the past, the last one was in 1984 surgical resection but no cancer case presented at tumor board on 10-13-23; consensus for a lumpectomy. last colonoscopy several years ago/poor prep Caffeine: 3 cups/day nicotine: none chocolate: occasional BCP: none hormones: none Family History: mother: colon cancer son: colon cancer Hormonal History: menarche: 12 , age at first : 18, breast fed: yes menopause: 45 Surgical History: right breast lumpectomies 2007 left breast lumpectomy 2018 Colon resection two hernias, upper abdomen gallbladder bilateral knee replacement right knee done 3 times hysterectomy did not take ovaries bladder surgery at the time off hysterectomy Medical History: fracture of back 3 fractures osteoporosis kyphosis fracture of collar bone Social History: Nicotine: Negative Alcohol: Negative Marijuana: Negative Drugs: Negative Review of Systems - Constitutional Denies fever, Denies weight loss - EENT EENT Comment(s): bilat cataract Eyes: denies blurred vision Ears: bilateral: decreased hearing Ears, nose, mouth and throat: Denies dysphagia - Breasts bilateral: as per HPI - Cardiovascular Denies chest pain, Denies shortness of breath - Respiratory Denies cough - Gastrointestinal Reports constipation - Genitourinary Genitourinary: Reports urge incontinence, Denies dysuria, Denies hematuria Menstruation: Reports postmenopausal - Musculoskeletal Reports as per HPI - Integumentary Reports unusual bruising, Denies rash - Neurological Denies headaches, Denies syncope - Psychiatric Reports as per HPI - Endocrine Reports as per HPI - Hematologic/Lymphatic Reports easy bruising - Allergic/Immunologic Reports as per HPI Past Medical History Past Medical History: Cancer, GI Bleed, Hypertension, Osteoarthritis (OA) Additional Past Medical History / Comment(s): HX RT BREAST CA-WITH RADIATION- 2006, BENIGN TUMOR COLON. HX BLEEDING ULCER-2007. Hx breast cancer left 2017/ radiation. History of Any Multi-Drug Resistant Organisms: None Reported Past Surgical History: Bladder Surgery, Bowel Resection, Breast Surgery, Cholecystectomy, Hernia Repair, Hysterectomy, Joint Replacement Additional Past Surgical History / Comment(s): SIGMOID RESECTION-1985,RT BREAST LUMPECTOMY-2006. BILAT TKA,CYSTOCELE, COLONOSCOPY,CATARACTS REMOVED BILAT, 01-01-16 TOTAL RT KNEE REPLACMENT. Left knee repalcement Past Anesthesia/Blood Transfusion Reactions: No Reported Reaction Past Psychological History: No Psychological Hx Reported Smoking Status: Never smoker Past Alcohol Use History: None Reported Past Drug Use History: None Reported - Past Family History Mother Family Medical History: Cancer, Deep Vein Thrombosis (DVT) Son(s) Family Medical History: Cancer Medications and Allergies Home Medications Medication Instructions Recorded Confirmed Type atenoloL [Tenormin] 25 mg PO DAILY 01/30/14 08/26/23 History polyethylene glycoL 3350 [Miralax] 17 gm PO DAILY PRN 05/05/21 08/26/23 History Allergies Allergy/AdvReac Type Severity Reaction Status Date / Time No Known Allergies Allergy Verified 10/02/23 08:13 Objective - Constitutional General appearance: Present: cooperative - EENT Eyes: Present: EOMI ENT: Present: hard of hearing - Neck Neck: Present: normal ROM - Respiratory Respiratory: bilateral: CTA - Cardiovascular Heart sounds: normal: S1, S2 - Gastrointestinal General gastrointestinal: Present: soft - Integumentary Integumentary: Present: normal turgor - Musculoskeletal Musculoskeletal Comment(s): kyphosis - Psychiatric Psychiatric: Present: A&O x's 3, appropriate affect, intact judgment & insight - Additional findings Additional findings: Breast Exam: BRA: 36C does not wear a bra Inspection: Bilateral scars in the breast from prior lumpectomies, some tethering of the skin in the upper outer quadrant of the left breast Palpation: Right breast: Multi positional exam no dominant masses or nodules of concern, postsurgical and radiation changes Right axilla: No adenopathy of concern Left breast: Multi positional exam fibrocystic changes, postsurgical changes from prior lumpectomy and radiation therapy, mass upper outer quadrant area with some tethering of the skin which is approximately 3 x 2 cm in size Left axilla: No adenopathy of concern Assessment and Plan Plan: Impression: Left breast papillary carcinoma ER/AK positive size 1.3 cm Prior left breast lumpectomy stage I invasive ductal carcinoma Prior right breast lumpectomy stage I invasive ductal carcinoma, 2006 Osteoporosis Kyphosis HTN Plan: presentation at tumor board; done on 10-13-23 pre-op clearance cardiology obtained genetic testing patient states this would not change her treatment option however she would like the information for her family needle localization left breast and left breast lumpectomy possible left oncoplastic tissue transfer CC: Dr. Angulo, Dr. Noyola Additional CC's: Hugo Noyola Prep Education Provided - Preoperative Education Given Pre-Op Kit Given Date: 10/21/23 - Functional Assessment Performed?: Yes (arm abduction/passed) Referal Provided?: No - Smoking Cessation Education Provided?: No (non smoker)
== END ==
LOC: WWCWWP 08:38
PROVIDERS: ATTEND Surgery
DX: C50.912 Malignant neoplasm of unspecified site of left female breast (principal); C50.911 Malignant neoplasm of unspecified site of right female breast; M81.0 Age-related osteoporosis without current pathological fracture; M40.209 Unspecified kyphosis, site unspecified; I10 Essential (primary) hypertension; Z48.817 Encounter for surgical aftercare following surgery on the skin and subcutaneous tissue; Z92.3 Personal history of irradiation; Z17.0 Estrogen receptor positive status [ER+]; Z79.899 Other long term (current) drug therapy

== ENCOUNTER 2023-11-10 11:40 | Day surgery (SDC) | payer MEDICARE ==
[~2023-11-10 11:40] MED LIST: ACETAMINOPHEN TAB 500 MG TAB ONE; DEXAMETHASONE SOD PHOSPHATE 4 MG/ML 1 ML VIAL ONE; HEPARIN SODIUM,PORCINE 5,000 UNIT/ML 1 ML VIAL ONE; LACTATED RINGERS 1,000 ML BAG ONE; LIDOCAINE 1% INJ 10MG/ML (10 ML MDV) ONE; LIDOCAINE 1% INJ 10MG/ML (20 ML MDV) ONE; ONDANSETRON 4 MG/2 ML VIAL ONE; PROPOFOL 10 MG/ML 20 ML VIAL IV ONE; SODIUM CHLORIDE 0.9% 50 ML BAG IV ONE; ceFAZolin 10 GM VIAL IVPB ONE; fentaNYL (PF) 50 MCG/ML 2 ML AMP ONE
--- NOTE | 2023-11-13 15:56 | OP ---
OPERATIVE REPORT DATE OF SERVICE : PREPROCEDURE DIAGNOSIS: Left breast cancer. POSTPROCEDURE DIAGNOSIS: Left breast cancer. PROCEDURE: Left breast needle localization lumpectomy. DESCRIPTION OF PROCEDURE: The patient was taken first to the Radiology Department for needle localization of the area of concern and it was performed. The patient was then brought to the operative suite. Following induction of anesthesia, the left breast was prepped and draped in a sterile fashion. An incision was made near the entrance of the needle and carried down to the subcutaneous tissue. Surrounding tissue was excised. The specimen removed was approximately 5 cm x 3 cm. Wide excision was performed of the area of concern. Posteriorly, dissection was performed onto the pectoralis muscle. Medially, additional tissue was obtained and a new medial margin was obtained. Anteriorly, skin was then taken. The specimen was painted for orientation. The wound was well irrigated. After we assured that hemostasis was obtained, the titanium clips were placed. The deep tissues were closed using 3-0 Vicryl suture. The skin was closed using 4-0 Monocryl. Radiograph of the specimen revealed that the area of concern had been removed. The patient tolerated the procedure in stable condition. MMODL / IJN: [id number] /
--- NOTE | 2023-11-30 08:31 | USB ---
EXAMINATION TYPE: US breast localization LT DATE OF EXAM: 11/17/2023 1:08 PM COMPARISON: NONE HISTORY: Known malignancy Informed consent was obtained and all the patient's questions were answered. The lesion in question was localized sonographically. The standard sterile technique was utilized, as well as appropriate lo evy anesthesia with 1% Lidocaine. Localization needle followed by placement of a guidewire was perfor med under sonographic guidance. Verification images demonstrate appropriate deployment of the guidewi re. The patient tolerated the procedure well and left the department in stable condition. Specimen radiograph demonstrates the lesion in question to reside within the specimen. IMPRESSION: Successful needle localization and open biopsy left breast with pathology results pending .
--- NOTE | 2023-12-02 11:38 | MM ---
Reason for Exam: Post Procedure Mammogram. Last mammogram was performed 17 year(s) and 4 month(s) ago. Patient History: Menarche at age 11. First Full-Term at age 17. Hysterectomy at age 43. Postmenopausal. Breast cancer, age 70. Breast cancer, left, age 87. 09/02/2023, Malignant US biopsy breast VAD LT on the left side. 08/20/2006, Malignant Excisional Biopsy on the right side. 1976, Benign Excisional Biopsy on the right side. 1976, Benign Excisional Biopsy on the left side. 08/07/2006, Malignant Core Biopsy on the right side. Maternal aunt had breast cancer. Prior Study Comparison: 07/17/2006 Bilateral Screening Mammogram, [facility]. 07/23/2006 Right Diagnostic Mammogram, [facility]. 09/02/2023 Left MG diagnostic mammo LT wo CAD., [facility]. Tissue Density: Left: The breasts are heterogeneously dense, which may obscure small masses. Pathology Description: Needle Type: 5 cm K[place] Informed consent was obtained and all the patient's questions were answered. The lesion in question was localized sonographically. The standard sterile technique was utilized, as well as appropriate local anesthesia with 1% Lidocaine. Localization needle followed by placement of a guidewire was performed under sonographic guidance. Verification images demonstrate appropriate deployment of the guidewire. The patient tolerated the procedure well and left the department in stable condition. Specimen radiograph demonstrates the lesion in question to reside within the specimen. IMPRESSION: Successful needle localization and open biopsy left breast with pathology results pending. Pathology Results: Result: Malignant. Pathology and radiology were reviewed. Findings are concordant. A. LEFT BREAST, NEW MEDIAL MARGIN, EXCISION: Breast tissue and new medial margin negative for malignancy. B. LEFT BREAST NEW ANTERIOR MARGIN, EXCISION: Rare solid papillary carcinoma with invasion. New anterior margin negative for tumor (tumor 1-2 mm from new anterior margin). Benign skin, see Surgical Pathology Cancer Case Summary and comment. C. LEFT BREAST LUMPECTOMY: Solid papillary carcinoma with invasion, Grade 2. All margins examined negative for carcinoma but cauterized tumor very close to and less than 1 mm from anterior margin within sections examined. See Surgical Pathology Cancer Case Summary. Overall Assessment: Malignant Assessment: MG diagnostic mammo LT wo CAD. - Left: Known biopsy proven malignancy, BI-RAD 6. Management: Surgical Consultation of the left breast. Electronically signed and approved by: Mat Oh M.D. Radiologis
== END 2023-11-10 13:51 ==
LOC: OR 11:40
PROVIDERS: ATTEND Surgery
DX: C50.912 Malignant neoplasm of unspecified site of left female breast (principal); Z78.0 Asymptomatic menopausal state; Z80.3 Family history of malignant neoplasm of breast
CPT/HCPCS: 76098; 77065; 88307; 88341; 88342

== ENCOUNTER → 2023-11-18 | Outpatient (CLI) | payer MEDICARE ==
--- NOTE | 2023-11-18 09:30 | P.BCPO ---
Progress Note - Text Progress Note Date: 11/18/23 Chantale is status post left breast lumpectomy on 10-02-23. Pathology is pending. Post operatively Examination: incision clean and dry Plan: appointment with medical and radiation oncology follow up in two weeks CC: Dr. Angulo
[2023-11-18 09:33] VITALS: BP 119/74; PULSE 100; RESP 16; TEMP 98.3
== END ==
LOC: WWCWWP 08:42
PROVIDERS: ATTEND Surgery
DX: Z48.817 Encounter for surgical aftercare following surgery on the skin and subcutaneous tissue (principal); Z98.890 Other specified postprocedural states